=== PATIENT | male | born 1995 | race Caucasian/White ===

== ENCOUNTER 2018-08-16 22:04 | Emergency (ER) | payer BC, OTHER ==
[~2018-08-16] VITALS: Ht 177.8 cm; Wt 104.3 kg
--- NOTE | 2018-08-16 22:10 | ED General ---
General Stated Complaint: BACK PAIN, ABD PAIN, DIFFICULTY URINATING History of Present Illness Date Seen by Provider: Aug 16, 2018 Time Seen by Provider: 22:10 Initial Comments Patient presents emergency department for evaluation of left flank pain that is radiating towards the left lower abdomen. Pain is associated with some nausea but no vomiting fevers chills. He has slight discomfort with urination. He denies any testicular pain. He appears uncomfortable but is nontoxic. 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 Allergies and Home Medications Allergies Coded Allergies: No Known Drug Allergies (Unverified , 08/16/18) Patient Home Medication List Home Medication List Reviewed: Yes Review of Systems Review of Systems Constitutional: no symptoms reported EENTM: no symptoms reported Respiratory: no symptoms reported Cardiovascular: no symptoms reported Gastrointestinal: abdominal pain, nausea; No vomiting Genitourinary: dysuria Musculoskeletal: back pain Skin: no symptoms reported Psychiatric/Neurological: No Symptoms Reported All Other Systems Reviewed Negative Unless Noted: Yes Past [id number]-Lxyedc-Xfdywj Hx Patient Social History Recent Foreign Travel: No Contact w/Someone Who Travel: No Physical Exam Vital Signs Vital Signs - First Documented 08/16/18 22:10 Temp 98.3 Pulse 72 Resp 16 B/P (MAP) 173/97 (122) Pulse Ox 97 O2 Delivery Room Air Capillary Refill : Height, Weight, BMI Height: '" Weight: lbs. oz. kg; BMI Method: General Appearance: No Apparent Distress, WD/WN Eyes: Bilateral Eye Normal Inspection HEENT: PERRL/EOMI Neck: Normal Inspection Respiratory: No Respiratory Distress Cardiovascular: Regular Rate, Rhythm Gastrointestinal: Non Tender, Soft Genital/Rectal: Normal Genital Exam Back: CVA Tenderness (L) Extremity: Normal Capillary Refill Neurologic/Psychiatric: Alert, Oriented x3 Skin: Normal Color, Warm/Dry Progress/Results/Core Measures Suspected Sepsis SIRS Temperature: Pulse: Respiratory Rate: Blood Pressure / Mean: Results/Orders Lab Results Laboratory Tests Test 08/16/18 22:15 Range/Units Urine Color YELLOW Urine Clarity SLT CLOUDY Urine pH 6.5 5-9 Urine Specific [place] 1.015 L 1.016-1.022 Urine Protein TRACE NEGATIVE Urine Glucose (UA) NEGATIVE NEGATIVE Urine Ketones NEGATIVE NEGATIVE Urine Nitrite NEGATIVE NEGATIVE Urine Bilirubin NEGATIVE NEGATIVE Urine Urobilinogen 0.2 NORMAL MG/DL Urine Leukocyte Esterase NEGATIVE NEGATIVE Urine RBC (Auto) 3+ H NEGATIVE Urine RBC >100 H /HPF Urine WBC 0-2 /HPF Urine Squamous Epithelial Cells NONE /HPF Urine Crystals NONE /LPF Urine Bacteria NEGATIVE /HPF Urine Casts NONE /LPF Urine Mucus SMALL H /LPF Urine Culture Indicated NO My Orders Orders - JOSE J RUFFIN DO Ua Culture If Indicated (08/16/18 22:14) Ct Abd/Pelvis Wo(Kidney Stone) (08/16/18 22:14) Ketorolac Injection (Toradol Injection) (08/16/18 22:15) Hydrocodone/Apap 5/325 Tablet (Lortab 5 (08/16/18 22:15) Ondansetron Oral Dissolve Tab (Zofran (08/16/18 22:14) Medications Given in ED Current Medications Medications Dose Ordered Sig/Liseth Route Start Time Stop Time Status Last Admin Dose Admin Acetaminophen/ Hydrocodone Bitart 2 tab ONCE ONCE PO 08/16/18 22:15 08/16/18 22:17 DC 08/16/18 22:30 2 TAB Ketorolac Tromethamine 60 mg ONCE ONCE IM 08/16/18 22:15 08/16/18 22:17 DC 08/16/18 22:31 60 MG Vital Signs/I&O 08/16/18 22:10 Temp 98.3 Pulse 72 Resp 16 B/P (MAP) 173/97 (122) Pulse Ox 97 O2 Delivery Room Air Capillary Refill : Progress Note : Progress Note Patient with pain is likely consistent with a kidney stone. Will check urinalysis CT give Toradol [place] and reassess. The good news is that the patient's pain completely resolved with the above treatment bed is is that he has a 5 mm stone at the left UPJ causing mild left hydronephrosis. I explained all this to the patient and told him there is a 50% chance her last that this stone will pass and has quite a ways to go. I told him if it does not pass he would require an intervention from a urologist so I will give him every opportunity to try and pass the stone on its own. Patient was told to drink plenty of fluids take ibuprofen for pain follow with a urologist as soon as possible and come back to the ED sooner with intractable pain fevers vomiting or general concerns. Patient aware and agreeable with plan for discharge and verbalized understanding of the above instructions. Departure Impression Primary Impression: Left ureteral calculus Disposition: 01 HOME, SELF-CARE Condition: Stable Departure-Patient Inst. Referrals: ARIA PUENTE MD Patient Instructions: How to Strain Your Urine, Renal Colic (DC) Add. Discharge Instructions: Call Dr. Van office tomorrow. Strain your urine. Take 600mg of ibuprofen every 6 hours. Drink plenty of fluids. The percocet is for breakthrough pain. Come back with intractable pain, vomiting, or other general concerns. Scripts Ondansetron (Ondansetron Odt) 4 Mg Tab.rapdis 4 MG PO Q6H PRN for NAUSEA/VOMITING-1ST LINE, #14 TAB Prov: JOSE J RUFFIN DO 08/16/18 Oxycodone HCl/Acetaminophen (Percocet 5-325 mg Tablet) 1 Each Tablet 1 TAB PO Q4H PRN for PAIN-MODERATE MDD 6 for 7 Days, #16 TAB Prov: JOSE J RUFFIN DO 08/16/18 Tamsulosin HCl (Flomax) 0.4 Mg Cap 0.4 MG PO qhs for 7 Days, #7 CAP Prov: JOSE J RUFFIN DO 08/16/18 JOSE J RUFFIN DO Aug 16, 2018 22:10
[2018-08-16] MEDS ORDERED: ONDANSETRON 4 MG (ZOFRAN) ORAL DISSOLVE TAB PO STA (22:14)
[2018-08-16] MEDS ORDERED: KETOROLAC 60 MG/2 ML VIAL IM ONE (22:15)
[2018-08-16] MEDS ORDERED: HYDROcodone/APAP 5 MG/325 MG (LORTAB) TAB PO ONE (22:15)
[2018-08-16 22:33] LABS: CLARITY,URINE SLT CLOUDY; COLOR,URINE YELLOW; GLUCOSE, URINE (UA) NEGATIVE (NEGATIVE); PH,URINE 6.5 (5-9); PROTEIN,URINE TRACE (NEGATIVE)
[2018-08-16 22:34] LABS: BACTERIA,URINE NEGATIVE /HPF; BILIRUBIN,URINE NEGATIVE (NEGATIVE); KETONES,URINE NEGATIVE (NEGATIVE); LEUKOCYTE ESTERASE ,URINE NEGATIVE (NEGATIVE); NITRITE,URINE NEGATIVE (NEGATIVE); RBC,URINE >100 /HPF; UROBILINOGEN,URINE 0.2 MG/DL (NORMAL); WBC,URINE 0-2 /HPF
[2018-08-16] MEDS ORDERED: TAMSULOSIN 0.4 MG (FLOMAX) CAP PO ONE (23:00)
[2018-08-16] MEDS ORDERED: OXYC-199 PO (23:05)
[2018-08-16] MEDS ORDERED: ONDA4TAB11 PO (23:05)
[2018-08-16] MEDS ORDERED: TAMS0.4C98 PO (23:05)
[2018-08-16 23:17] VITALS: BP 153/77
--- NOTE | 2018-08-17 07:53 | Diagnostic Imaging Report ---
PROCEDURE: CT urinary tract, rule out kidney stone. TECHNIQUE: Multiple contiguous axial images were obtained through the abdomen and pelvis without the use of intravenous contrast. Auto Exposure Controls were utilized during the CT exam to meet ALARA standards for radiation dose reduction. INDICATION: Left-sided flank pain. COMPARISON: None FINDINGS: The lung bases are clear. The heart is normal in size. There is no pericardial effusion. The liver, spleen, pancreas, and adrenal glands are unremarkable. The right kidney appears normal with no hydronephrosis or obstructing calculi. The left kidney demonstrates mild hydronephrosis and hydroureter with an obstructing calculus in the proximal left ureter measuring 5 mm in diameter, located at a few centimeters beyond the ureteropelvic junction. The bowel loops are nondistended without obstruction. No free fluid or free air seen. The appendix appears normal. No acute osseous abnormality seen. IMPRESSION: 1. Obstructing 5 mm calculus in the proximal left ureter causing mild left hydronephrosis. Dictated by: Dictated on workstation # [id number]
== END 2018-08-16 23:20 | disposition home or self-care (01) ==
LOC: ER FS 22:06
DX: N13.2 Hydronephrosis with renal and ureteral calculous obstruction (principal)
CPT/HCPCS: 74176; 81000

== ENCOUNTER → 2019-04-15 | Outpatient (CLI) | payer BC ==
[~2019-04-15] MED LIST: ONDA4TAB11 PO; OXYC-199 PO; TMSL.4C PO
--- NOTE | 2019-04-15 09:23 | Diagnostic Imaging Report ---
INDICATION: Pain and swelling of left ankle with left ankle injury. Time of exam 9:13 AM 3 views if the left ankle were obtained. Alignment is normal. Ankle mortise is well maintained. Talar dome is smooth. There is a subtle transversely oriented lucency through the distal fibula on the AP view. This is not confirmed on the oblique or lateral view but fracture line is cannot be ruled out. Is overlying soft tissue swelling about the lateral ankle. No other abnormalities are seen. IMPRESSION: Lateral ankle swelling. There is questionable lucency through the distal fibula and fracture cannot be entirely excluded. CT through the left ankle may be useful for further evaluation. Dictated by: Dictated on workstation # [id number]
== END ==
LOC: RAD FS 09:08
PROVIDERS: ATTEND Nurse Practitioner Family
DX: S99.912A Unspecified injury of left ankle, initial encounter (principal); M25.472 Effusion, left ankle
CPT/HCPCS: 73610